=== PATIENT | female | born 1960 | race Caucasian/White ===

== ENCOUNTER → 2017-12-19 | Day surgery (SDC) | payer OTHER ==
[2017-12-15 09:23] VITALS: BMI 25.0
[~2017-12-19] MED LIST: LACTATED RINGERS 1,000 ML IV SCH; LIDOCAINE 1% 20 ML VIAL (10MG/ML) FOR IV START INTRADERMA ONE; LIDOCAINE 1% INJ 10MG/ML (20 ML MDV) ONE; PROPOFOL 10 MG/ML 20 ML VIAL IV ONE
[2017-12-19 08:19] VITALS: TEMP 96.8
--- NOTE | 2017-12-19 08:51 | P.GSHP ---
History of Present Illness H&P Date: 12/19/17 Chief Complaint: GERD,Screening colonoscopy 77-year-old female referred from Dr. Neel Simpson. Patient presents today for screening colonoscopy. She denies any significant change in bowel habit. Patient has had some issues with GERD and epigastric dull pain Past Medical History Past Medical History: GERD/Reflux, Hypertension Additional Past Medical History / Comment(s): Sjogren's History of Any Multi-Drug Resistant Organisms: None Reported Past Surgical History: Hysterectomy Past Anesthesia/Blood Transfusion Reactions: No Reported Reaction Smoking Status: Current every day smoker - Past Family History Daughter(s) Family Medical History: Cancer Additional Family Medical History / Comment(s): multiple myeloma Medications and Allergies Home Medications Medication Instructions Recorded Confirmed Type Hydroxychloroquine Sulfate 200 mg PO DAILY 12/15/17 12/19/17 History [Plaquenil] Lisinopril-Hctz 20-12.5 mg 1 tab PO DAILY 12/15/17 12/19/17 History [Zestoretic 20-12.5] Allergies Allergy/AdvReac Type Severity Reaction Status Date / Time No Known Allergies Allergy Verified 12/19/17 08:14 Surgical - Exam Vital Signs Temp Pulse Resp BP Pulse Ox 96.8 F L 71 18 124/71 100 12/19/17 08:18 12/19/17 08:18 12/19/17 08:18 12/19/17 08:18 12/19/17 08:18 - General well developed, no distress - Eyes PERRL - ENT normal pinna - Neck no masses - Respiratory normal expansion - Cardiovascular Rhythm: regular - Abdomen Abdomen: soft, tender (Mild epigastric pain) Assessment and Plan Assessment: We'll perform EGD and screening colonoscopy.
--- NOTE | 2017-12-19 09:16 | P.OP ---
Date of Procedure: 12/19/17 Preoperative Diagnosis: GERD Screening colonoscopy Postoperative Diagnosis: Antral gastritis Hiatal hernia Esophagitis Severe diverticulosis of sigmoid colon Procedure(s) Performed: EGD Colonoscopy Anesthesia: MAC Surgeon: Renard Jasmine Pathology: other (Antrum, esophagus) Condition: stable Disposition: PACU Description of Procedure: Patient's placed on the endoscopy table in the lateral position. She received IV sedation. The gastroscope placed oropharynx passed in the esophagus and stomach. Scope was placed through the pylorus. First and second portion of duodenum appeared normal. Scope was then brought back the antrum this was mildly inflamed. A biopsies performed. The scope was then retroflexed and remainder of the stomach appeared normal. There was a moderate size hiatal hernia. The GE junction was at 38 cm. The distal esophagus appeared mildly inflamed a biopsies performed. The proximal esophagus appeared normal. Scope was withdrawn for patient. Next digital rectal exam was performed which revealed no abnormalities. Flexible colonoscope was then placed patient anus passed with colon. Scope could not pass beyond the descending colon secondary to severe diverticulosis. This point scope was withdrawn. The sigmoid colon extensive diverticular changes. The rectum was normal. Scope was withdrawn for patient.
[2017-12-19 09:34] VITALS: PULSE 68; RESP 16
[2017-12-19 10:34] VITALS: BP 112/74
--- NOTE | 2017-12-19 12:50 | XR ---
EXAMINATION TYPE: XR abdomen 1V DATE OF EXAM: 12/19/2017 COMPARISON: NONE HISTORY: Failed colonoscopy TECHNIQUE: One view abdominal series FINDINGS: The osseous structures are intact. The bowel gas pattern is nonspecific. Lung bases are clear. Air seen throughout large and small bowel loops in a nonspecific pattern. Arthropathy of the hips are noted. Calcifications the pelvis likely vascular. Chronic appearing deformity of the L2 vertebral se gment. Upper abdomen is not included in assessment for free air nondiagnostic. IMPRESSION: 1. Nonspecific abdomen.
== END ==
LOC: ORWHC2ENDO 08:02
PROVIDERS: ATTEND Surgery
DX: Z12.11 Encounter for screening for malignant neoplasm of colon (principal); K29.50 Unspecified chronic gastritis without bleeding; B96.81 Helicobacter pylori [H. pylori] as the cause of diseases classified elsewhere; K57.30 Diverticulosis of large intestine without perforation or abscess without bleeding; K44.9 Diaphragmatic hernia without obstruction or gangrene; K21.0 Gastro-esophageal reflux disease with esophagitis; I10 Essential (primary) hypertension; M35.00 Sjogren syndrome, unspecified; I73.00 Raynaud's syndrome without gangrene; F17.200 Nicotine dependence, unspecified, uncomplicated; Z79.899 Other long term (current) drug therapy; Z90.710 Acquired absence of both cervix and uterus
CPT/HCPCS: 88305; 88342; 74018; 43239; J2001; J2704; G0104; 45378

== ENCOUNTER → 2017-12-20 | Outpatient (CLI) | payer OTHER ==
--- NOTE | 2017-12-20 22:06 | FL ---
EXAMINATION TYPE: FL barium enema w air contrast DATE OF EXAM: 12/20/2017 CLINICAL HISTORY: 57-year-old female incomplete colonoscopy. Unable to traverse the descending colon due to diverticulosis. TECHNIQUE: A double contrast barium enema study is performed. Total fluoroscopy time: 3 minutes 52 seconds. Total images: 50. COMPARISON: None. FINDINGS: Third Rail Installer view of the abdomen shows overall non-obstructive bowel gas pattern. Multiple pelvic phlebolith s. Minimal scattered residual adherent stool material is present. In addition, there is redundancy of th e sigmoid colon causing excessive overlap and limiting visualization. There is moderate diverticulosis about the splenic flexure extending down to the mid sigmoid colon. A dditional diverticulosis involving the cecum. No evidence of any mass or polyp, obstructing or constricting lesion throughout the colon. The appendix was filled and appeared normal. The terminal ileum not reflux. IMPRESSION: Left hemicolonic diverticulosis and additional diverticular change within the cecum. Slight limitatio n due to minimal scattered adherent fecal debris and sigmoid redundancy. No suspicious polyp or const ricting lesion seen.
== END | disposition home or self-care (01) ==
LOC: RADFLMAIN 07:48
PROVIDERS: ATTEND Surgery
DX: Z53.9 Procedure and treatment not carried out, unspecified reason (principal)
CPT/HCPCS: 74280

== ENCOUNTER → 2017-12-30 | Outpatient (CLI) | payer OTHER ==
--- NOTE | 2018-01-02 10:51 | MM ---
Reason for exam: screening (asymptomatic). Last mammogram was performed 9 years and 2 months ago. History: Patient is postmenopausal. Physical Findings: A clinical breast exam by your physician is recommended on an annual basis and results should be correlated with mammographic findings. MG Screening Mammo w CAD Bilateral CC and MLO view(s) were taken. Prior study comparison: October 17, 2008, bilateral digital screening mammogram. June 22, 1999, bilateral diagnostic mammogram. The breast tissue is heterogeneously dense. This may lower the sensitivity of mammography. There is no discrete abnormality. ASSESSMENT: Negative, BI-RAD 1 RECOMMENDATION: Routine screening mammogram of both breasts in 1 year.
== END | disposition home or self-care (01) ==
LOC: RADMAMWWP 13:41
PROVIDERS: ATTEND Family Medicine
DX: Z12.31 Encounter for screening mammogram for malignant neoplasm of breast (principal)
CPT/HCPCS: 77067

== ENCOUNTER 2018-06-19 08:33 | Day surgery (SDC) | payer OTHER ==
[2018-06-14 14:38] VITALS: BMI 24.4
[2018-06-19] MEDS ORDERED: LACTATED RINGERS 1,000 ML IV ONE (09:00)
[2018-06-19] MEDS ORDERED: LIDOCAINE 1% INJ 10MG/ML (20 ML MDV) ONE (09:11)
[2018-06-19] MEDS ORDERED: PROPOFOL 10 MG/ML 20 ML VIAL IV ONE (09:11)
--- NOTE | 2018-06-19 09:14 | P.GSHP ---
History of Present Illness H&P Date: 06/19/18 Chief Complaint: Gastritis This a 57-year-old female who's had complaints of epigastric pain. Patient has a history of H. pylori gastritis. She presents today for EGD. Past Medical History Past Medical History: GERD/Reflux, Hypertension, Thyroid Disorder Additional Past Medical History / Comment(s): Sjogren's. hx h-pylori. HIATAL HERNIA. RAYNAUD'S. PATRICA'S History of Any Multi-Drug Resistant Organisms: None Reported Past Surgical History: Hysterectomy Additional Past Surgical History / Comment(s): EGD. COLONOSCOPY Past Anesthesia/Blood Transfusion Reactions: No Reported Reaction Smoking Status: Current every day smoker - Past Family History Daughter(s) Family Medical History: Cancer Additional Family Medical History / Comment(s): multiple myeloma Brother(s) Family Medical History: Cancer Medications and Allergies Home Medications Medication Instructions Recorded Confirmed Type Hydroxychloroquine Sulfate 200 mg PO DAILY 12/15/17 06/19/18 History [Plaquenil] Lisinopril-Hctz 20-12.5 mg 1 tab PO DAILY 12/15/17 06/19/18 History [Zestoretic 20-12.5] Omeprazole 20 mg PO DAILY 06/14/18 06/19/18 History Allergies Allergy/AdvReac Type Severity Reaction Status Date / Time No Known Allergies Allergy Verified 06/19/18 08:49 Surgical - Exam Vital Signs Pulse Resp BP Pulse Ox 79 16 128/75 93 L 06/19/18 08:52 06/19/18 08:52 06/19/18 08:52 06/19/18 08:52 - General well developed, well nourished, no distress - Eyes PERRL - ENT normal pinna - Neck no masses - Respiratory normal expansion - Cardiovascular Rhythm: regular - Abdomen Abdomen: soft, non tender Assessment and Plan Assessment: Gastritis. We'll perform EGD.
--- NOTE | 2018-06-19 09:22 | P.OP ---
Date of Procedure: 06/19/18 Preoperative Diagnosis: Gastritis Postoperative Diagnosis: Mild antral gastritis Procedure(s) Performed: EGD Anesthesia: MAC Surgeon: Renard Jasmine Pathology: other (Antrum) Condition: stable Disposition: PACU Description of Procedure: The patient's placed on the endoscopy table in the lateral position. She received IV sedation. The gastroscope placed oropharynx and passed in the esophagus and into the stomach. Scope was then placed through the pylorus. The first and second portion of the duodenum appeared normal. Scope was then brought back the antrum this. Mildly inflamed. A biopsies performed. The scope was then retroflexed and the remainder of the stomach appeared normal. There was a hiatal hernia. The GE junction was at 38 cm. The distal esophagus appeared normal. Scope was withdrawn for patient. withdrawn for patient.
[2018-06-19 09:44] VITALS: BP 110/68; PULSE 74; RESP 18
== END 2018-06-19 09:51 | disposition home or self-care (01) ==
LOC: ORWHC2ENDO 08:33
PROVIDERS: ATTEND Surgery
DX: K29.50 Unspecified chronic gastritis without bleeding (principal); K21.9 Gastro-esophageal reflux disease without esophagitis; K44.9 Diaphragmatic hernia without obstruction or gangrene; I10 Essential (primary) hypertension; E07.9 Disorder of thyroid, unspecified; M35.00 Sjogren syndrome, unspecified; I73.00 Raynaud's syndrome without gangrene; E06.3 Autoimmune thyroiditis; Z79.899 Other long term (current) drug therapy; F17.200 Nicotine dependence, unspecified, uncomplicated
CPT/HCPCS: 88305; 43239; J2001; J2704